=== PATIENT | female | born 1990 | race Caucasian/White ===

== ENCOUNTER 2017-10-14 11:42 | Emergency (ER) | payer MEDICAID, OTHER | END 2017-10-14 13:09 | disposition home or self-care (01) | LOC: FTE 11:42 | DX: J30.9 Allergic rhinitis, unspecified (principal); H57.8 Other specified disorders of eye and adnexa | CPT/HCPCS: 99284; Z7502 ==

== ENCOUNTER 2017-12-26 14:59 | Emergency (ER) | payer SELFPAY, MEDICAID | END 2017-12-26 18:23 | disposition left against medical advice (07) | LOC: FTE 18:23 | DX: Z53.21 Procedure and treatment not carried out due to patient leaving prior to being seen by health care provider (principal) ==